=== PATIENT | female | born 1990 | race Caucasian/White ===

== ENCOUNTER 2020-08-09 16:30 | Observation (INO) ==
[2020-08-09 17:48] LABS: Bilirubin,Urine Negative (Negative); Blood, Urine Moderate mg/dL (Negative); Glucose,Urine (UA) Negative (Negative); Ketones,Urine Negative (Negative); Nitrite,Urine Negative (Negative); Protein,Urine Negative; RBC,Urine 1 /HPF (0-4); Squamous Epithelial Cell,Urine Occasional /HPF (0-10); Urine Appearance CLEAR (Clear); Urine Color Yellow (Yellow); Urine Specific Gravity 1.008 (1.001-1.035); Urine Urobilinogen < 2.0 EU/DL (0.2-1.0); WBC,Urine 1 /HPF (0-6)
[2020-08-09 18:19] LABS: Basophils % 0.3 % (0.0-0.8); Eosinophils % 0.1 % (0.00-10.9); Hemoglobin 13.8 GM/DL (12.0-16.0); Immature Granulocytes % 0.3 %; Immature Granulocytes Absolute 0.02 #; Mean Corpuscular HGB Conc 36.3 GM/DL (32-36); Monocytes % 7.3 % (1.7-12.7); Platelet Count 315 T/CUMM (130-400); Red Blood Count 4.81 MC/CUMM (3.8-5.5); Red Cell Distribution Width 11.5 % (9.3-17.3); White Blood Count 7.3 T/CUMM (4-12)
[2020-08-09 19:22] LABS: Calcium 9.1 MG/DL (8.5-10.1)
[2020-08-09 19:23] LABS: Albumin 3.8 G/DL (3.4-5.0)
[2020-08-09 19:24] LABS: Osmolality,Calculated 261.5 MOS/KG (273-304)
[2020-08-09 19:28] LABS: Bilirubin,Total 0.7 MG/DL (0.2-1.0); Total Protein 7.2 G/DL (6.4-8.3)
[2020-08-09 19:41] LABS: Potassium 1.9 MMOL/L (3.5-5.1)
[2020-08-09] MEDS ORDERED: POTASSIUM CHLORIDE RIDER 20 MEQ in PREMIX 1 EACH IV STA (20:07)
[2020-08-09] MEDS ORDERED: LACTATED RINGERS 1,000 ML IV ONE (20:13)
[2020-08-09] MEDS: POTASSIUM CHLORIDE RIDER 10 MEQ in PREMIX 1 EACH IV SCH ×2 (20:40→21:50)
[2020-08-09] MEDS: POTASSIUM CHLORIDE RIDER 20 MEQ in PREMIX 1 EACH IV STA ×2 (20:40→21:54)
[2020-08-09] MEDS ORDERED: LOPERAMIDE 2 MG CAPSULE PO STA (23:57)
[2020-08-10] MEDS ORDERED: ONDANSETRON 4 MG/2 ML VIAL IV PRN (00:06)
[2020-08-10] MEDS ORDERED: GLUCAGON 1 MG VIAL IM PRN (00:06)
[2020-08-10] MEDS ORDERED: DEXTROSE 50% 25 GM/50 ML VIAL IV PRN (00:06)
[2020-08-10] MEDS ORDERED: MAGNESIUM SULF RIDER 4 GM in PREMIX 1 EACH IV PRN (00:10)
[2020-08-10] MEDS ORDERED: MAGNESIUM SULF RIDER 2 GM in PREMIX 1 EACH IV PRN (00:10)
[2020-08-10] MEDS ORDERED: ZALEPLON 5 MG CAPSULE PO PRN (00:10)
[2020-08-10] MEDS ORDERED: DEXTROSE 50% 25 GM/50 ML SYRINGE IV PRN (00:27)
[2020-08-10] MEDS: POTASSIUM CHLORIDE 20 MEQ TABLET PO SCH ×2 (00:30→12:16)
[2020-08-10] MEDS: POTASSIUM CHLORIDE INJ 60 MEQ in SODIUM CHLORIDE 0.9% 1,000 ML IV SCH ×4 (01:07→21:37)
[2020-08-10 04:31] LABS: Basophils % 0.1 % (0.0-0.8); Eosinophils % 0.3 % (0.00-10.9); Hematocrit 32.7 VOL% (35.7-47.0); Hemoglobin 11.7 GM/DL (12.0-16.0); Immature Granulocytes % 0.4 %; Immature Granulocytes Absolute 0.03 #; Lymphocytes # 1.5 10*3/uL (1.4-4.0); Lymphocytes % 22.6 % (21.3-54.2); Mean Corpuscular HGB Conc 35.8 GM/DL (32-36); Mean Corpuscular Volume 80.5 FL (87-102); Neutrophils % 66.6 % (38.7-73.9); Platelet Count 250 T/CUMM (130-400); Red Blood Count 4.06 MC/CUMM (3.8-5.5); Red Cell Distribution Width 11.6 % (9.3-17.3); White Blood Count 6.8 T/CUMM (4-12)
[2020-08-10 05:01] LABS: Albumin 2.8 G/DL (3.4-5.0); Bilirubin,Total 0.6 MG/DL (0.2-1.0); Calcium 7.8 MG/DL (8.5-10.1); Osmolality,Calculated 270.8 MOS/KG (273-304)
[2020-08-10] MEDS ORDERED: LOPERAMIDE 2 MG CAPSULE ONE (09:31)
[2020-08-10 17:52] LABS: Calcium 7.7 MG/DL (8.5-10.1); Osmolality,Calculated 277.1 MOS/KG (273-304)
[2020-08-10] MEDS ORDERED: POTASSIUM CHLORIDE 20 MEQ/15 ML UDCUP PO SCH (21:00)
[2020-08-10] MEDS: VANCOMYCIN 50 MG/ML 60 ML/BOTTLE PO SCH (21:28)
[2020-08-10] MEDS: COLESTIPOL 1 GM TABLET PO SCH (21:29)
[2020-08-11] MEDS: VANCOMYCIN 50 MG/ML 60 ML/BOTTLE PO SCH ×3 (02:47→14:48)
[2020-08-11] MEDS: POTASSIUM CHLORIDE INJ 60 MEQ in SODIUM CHLORIDE 0.9% 1,000 ML IV SCH (03:22)
[2020-08-11] MEDS: ACETAMINOPHEN 325 MG TABLET PO PRN ×2 (08:21→15:11)
[2020-08-11] MEDS: COLESTIPOL 1 GM TABLET PO SCH (10:35)
[2020-08-11 15:09] VITALS: BP 100/54
== END 2020-08-11 17:29 | disposition home or self-care (01) ==
LOC: N.ED 16:30 → N.EDINP 16:30 → N.TELES 08-10 11:55
PROVIDERS: ADMIT Internal Medicine; ATTEND Internal Medicine